=== PATIENT | male | born 1970 | race American Indian/Alaskan Native ===

== ENCOUNTER 2021-10-28 00:01 | Emergency (ER) | payer SELFPAY ==
--- NOTE | 2021-10-28 01:19 | Emergency Department Report ---
HPI - General Time Seen by Provider: 10/28/21 01:09 - [facility] HPI: Room 4 The patient is a 51-year-old male present with a chief complaint of seizure. Patient carries a diagnosis of seizure disorder states has been compliant with his Keppra. Patient states he was recently released from residential and is in a transitional home where they decrease his Keppra dose from 1000 mg twice daily to 500 mg twice daily approximately 4 months ago. Patient denies any pain currently stating he feels slightly "foggy." ED Past Medical Hx - Past Medical History Hx Seizures: Yes - Surgical History Additional Surgical History: Hand surgery - Family History Family history: no significant - Social History Smoking Status: Never Smoker Substance Use Type: None (Denies illicit drug) - Medications Home Medications: Home Medications Medication Instructions Recorded Confirmed Last Taken Type levETIRAcetam [Keppra TAB] 500 mg PO BID #60 tablet 10/28/21 Unknown Rx ED Review of Systems ROS: Stated complaint: SEIZURE Other details as noted in HPI Constitutional: no symptoms reported Eyes: denies: eye pain ENT: denies: throat pain Respiratory: no symptoms reported Cardiovascular: denies: chest pain Endocrine: no symptoms reported Gastrointestinal: denies: abdominal pain Genitourinary: denies: dysuria Musculoskeletal: denies: back pain Neurological: denies: headache Physical Exam - Physical Exam Vital Signs: Vital Signs 10/28/21 00:39 Temperature 98.0 F Pulse Rate 81 Respiratory 19 Rate Blood Pressure 128/81 [Right] O2 Sat by Pulse 98 Oximetry Physical Exam: GENERAL: The patient is well-developed well-nourished male sitting in stretcher not appearing to be in acute distress. [] HEENT: Normocephalic. Atraumatic. Extraocular motions are intact. Patient has moist mucous membranes. NECK: Supple. No meningitic signs are noted. Trachea midline CHEST/LUNGS: Clear to auscultation. There is no respiratory distress noted. HEART/CARDIOVASCULAR: Regular. There is no tachycardia. There is no gallop rub or murmur. ABDOMEN: Abdomen is soft, nontender. Patient has normal bowel sounds. There is no abdominal distention. SKIN: There is no rash. There is no edema. There is no diaphoresis. NEURO: The patient is awake, alert, and oriented. The patient is cooperative. The patient has no focal neurologic deficits. The patient has normal speech. Cranial nerves II through XII grossly intact. GCS 15 MUSCULOSKELETAL: There is no evidence of acute injury. ED Course Vital Signs 10/28/21 00:39 Temperature 98.0 F Pulse Rate 81 Respiratory 19 Rate Blood Pressure 128/81 [Right] O2 Sat by Pulse 98 Oximetry ED Medical Decision Making - Lab Data Result diagrams: 10/28/21 01:19 10/28/21 01:19 Laboratory Tests 10/28/21 10/28/21 01:19 01:19 WBC 7.0 RBC 4.81 Hgb 12.9 Hct 40.0 MCV 83 L MCH 27 L MCHC 32 RDW 14.3 Plt Count 261 Lymph % (Auto) 19.0 [place] % (Auto) 6.5 Eos % (Auto) 0.4 Baso % (Auto) 0.8 Lymph # (Auto) 1.3 [place] # (Auto) 0.5 Eos # (Auto) 0.0 Baso # (Auto) 0.1 Seg Neutrophils % 73.3 H Seg Neutrophils # 5.1 Sodium 139 Potassium 3.7 Chloride 104.8 Carbon Dioxide 22 Anion Gap 16 BUN 9 Creatinine 1.0 Estimated GFR > 60 BUN/Creatinine Ratio 9 Glucose 110 H Calcium 8.6 Magnesium 2.20 - Differential Diagnosis Seizure Critical care attestation.: If time is entered above; I have spent that time in minutes in the direct care of this critically ill patient, excluding procedure time. ED Disposition Clinical Impression: Seizure Disposition: 01 HOME / SELF CARE / HOMELESS Is pt being admited?: No Does the pt Need Aspirin: No Condition: Stable Instructions: Epilepsy, [id number] Additional Instructions: Return to the emergency department should you develop worsening symptoms, inability to tolerate food or liquids, high fever or any other concerns Prescriptions: levETIRAcetam [Keppra TAB] 500 mg PO BID #60 tablet Referrals: LYNNETTE FOUNTANI MD [Staff Physician] - 3-5 Days (Dr. Fountain is a neurologist. Please follow-up with him or your own neurologist for further evaluation) Time of Disposition: 02:21
[2021-10-28 01:37] LABS: Basophils # (Auto) 0.1 K/mm3 (0.0-0.1); Basophils % (Auto) 0.8 % (0.0-1.8); Eosinophils % (Auto) 0.4 % (0.0-4.3); Hemoglobin 12.9 gm/dl (11.8-15.2); Lymphocytes # (Auto) 1.3 K/mm3 (1.2-5.4); Mean Corpuscular HGB Conc 32 % (32-34); Mean Corpuscular Volume 83 fl (84-94); Monocytes # (Auto) 0.5 K/mm3 (0.0-0.8); Monocytes % (Auto) 6.5 % (0.0-7.3); Platelet Count 261 K/mm3 (140-440); Red Blood Count 4.81 M/mm3 (3.65-5.03); Red Cell Distribution Width 14.3 % (13.2-15.2)
[2021-10-28 01:52] LABS: BUN/Creatinine Ratio 9; Blood Urea Nitrogen 9 mg/dL (9-20); Calcium 8.6 mg/dL (8.4-10.2); Hemolysis Index 18
[2021-10-28 03:15] VITALS: BP 139/73
[2021-10-28] MEDS ORDERED: levETIRAcetam 1000 MG/NS 0.75% 1,000 MG/100 ML BAG IV ONE (03:16)
== END 2021-10-28 03:06 | disposition home or self-care (01) ==
LOC: ED 00:01
DX: R56.9 Unspecified convulsions (principal); Z98.890 Other specified postprocedural states
CPT/HCPCS: 36415; 80048; 83735; 85025; 96374; 99284; J1953